=== PATIENT | male | born 1970 | race African-American/Black ===

== ENCOUNTER 2020-07-05 11:46 | Emergency (ER) | payer OTHER, SELFPAY ==
--- NOTE | ~2020-07-05 | CT_ITS ---
EXAMINATION: CT abdomen pelvis w con EXAM DATE: 07/05/2020 14:21 INDICATION: Left lower quadrant pain since Friday. TECHNIQUE: Spiral CT of the abdomen and pelvis was performed following intravenous injection of 100 m L Omnipaque 350. Axial, coronal and sagittal images of the abdomen and pelvis were reviewed. The do se-length product (DLP) for this examination was 705.32 mGy-cm. The exposure was tailored according to patient size (auto mA exposure control), and iterative reconstruction (ASIR) was used as additiona l dose reduction technique. Comparison is made to prior examination from 08/05/2018. FINDINGS: The largest liver cyst is in the segment 3, measures 3.3 cm. The spleen, pancreas, and adr enal glands are unremarkable. Gallbladder is unremarkable. No biliary obstruction. Portal and sple yane veins are patent. Kidneys enhance symmetrically. There is no hydronephrosis. The prostate is unremarkable. The bladder is unremarkable. There is no retroperitoneal or pelvic lymphadenopathy. There is mild scattered arteriosclerotic disease. Small umbilical fat-containing hernia. The appendix is normal. There is a rectosigmoid anastomosis site. The stomach and small bowel are un remarkable. There is expected amount of colonic stool. No free intraperitoneal gas. The heart is normal in size. There are no pericardial or pleural effusions. The lung bases are unremarkable. T here are no osteoblastic or osteolytic lesions identified. Severe left L5-S1 facet arthropathy. IMPRESSION: 1. No acute intra-abdominal findings. 2. Small umbilical hernia. Reviewed, dictated and finalized at location A.
[2020-07-05 12:06] VITALS: BP 131/81; PULSE 67; RESP 17; TEMP 36.7; O2SAT 100
[2020-07-05 12:19] LABS: Basophils Percent Auto 0.3 % (0.2-1.2); Eosinophils Absolute Auto 0.2 K/mm3 (0-0.3); Eosinophils Percent Auto 2.1 % (0-4.4); Hemoglobin 15.2 g/dL (14.0-18.0); Immature Granulocyte Absolute 0.03 K/mm3 (0.00-0.031); Immature Granulocyte Percent A 0.3 % (0-0.5); Lymphocytes Absolute Auto 2.58 K/mm3 (0.9-3.2); Lymphocytes Percent Auto 28.4 % (18.3-44.2); Mean Corpuscular HGB Conc 34.5 g/dl (32-36); Mean Corpuscular Hemoglobin 34.4 pg (26-34); Mean Corpuscular Volume 99.5 fl (80-100); Mean Platelet Volume 9.1 fl (7.4-10.4); Monocytes Absolute Auto 0.6 K/mm3 (0.1-0.6); Monocytes Percent Auto 6.4 % (2.6-8.5); Neutrophils Absolute Auto 5.7 K/mm3 (1.3-6.7); Neutrophils Percent Auto 62.5 % (45.5-73.1); Platelet Count Result 220 k/mm3 (150-375); Red Blood Count 4.42 M/mm3 (4.6-6.20); Red Cell Distribution Width 11.8 % (11.5-14.5); White Blood Count 9.1 K/mm3 (4.5-10.0)
[2020-07-05 12:28] LABS: Alanine Aminotransferase 31 U/L (4-50); Albumin Level 4.6 g/dL (3.5-5.1); Alkaline Phosphatase 91 U/L (38-126); Anion Gap 10 mmol/L (8-16); Aspartate Amino Transferase 34 U/L (17-59); Bilirubin,Total 0.6 mg/dL (0.2-1.3); Blood Urea Nitrogen 17 mg/dL (9-20); Calcium 9.6 mg/dL (8.4-10.2); Carbon Dioxide 24 mmol/L (22-30); Chloride 105 mmol/L (98-107); Estimated CRCL calculation 94 ml/min; Estimated Glomerular Filt Rate > 60; Glucose 97 mg/dL (75-110); Lipase 94 U/L (23-300); Potassium 4.2 mmol/L (3.4-5.0); Sodium 139 mmol/L (137-145)
--- NOTE | 2020-07-05 13:07 | ED.GENADULT ---
HPI - General Adult General Chief complaint: Abdominal Pain Stated complaint: abdominal pain Time Seen by Provider: 07/05/20 13:00 Source: RN notes reviewed History of Present Illness HPI narrative: Patient presents to emergency department from home for left lower quad abdominal pain. Patient states pain began 3 days ago. The pain is described as aching in nature and does not radiate patient denies any fevers or chills chest pain, shortness of breath, nausea, vomiting, diarrhea or any other symptoms. States he saw his PCP who sent her to the emergency department for further evaluation denies requiring any pain medication at this time Related Data Home Medications Medication Instructions Recorded Confirmed amlodipine 07/05/20 Allergies Allergy/AdvReac Type Severity Reaction Status Date / Time hydromorphone Allergy Unknown Itching Verified 07/05/20 15:18 pantoprazole Allergy Unknown Rash Verified 07/05/20 15:18 acetaminophen AdvReac Unknown Itching Verified 07/05/20 15:18 hydrocodone AdvReac Unknown Itching Verified 07/05/20 15:18 Review of Systems Review of Systems: Narrative: Gen.: Denies fevers or chills ENT: Denies congestion Respiratory: Denies shortness of breath or cough CV: Denies chest pain or palpitations GI: See HPI denies burning, urgency, frequency or hematuria Musculoskeletal: Denies back pain or muscle pain Neuro: Denies numbness, tingling, weakness or focal weakness Skin: Denies rash Except as documented, all other systems reviewed and negative [facility] Past Medical History Medical History (Updated 07/05/20 @ 16:09 by Abdoulaye Mancuso DO) Hypertension Social History Social History (Updated 07/05/20 @ 13:08 by Abdoulaye Mancuso DO) Smoking status: Current every day smoker Gender identity (if verbalized by the patient): Male Exam Narrative: Exam Narrative: APPEARANCE: No acute distress, nontoxic, resting in bed HEENT: Normocephalic, atraumatic, OMM RESPIRATORY: No respiratory distress, clear to auscultation bilaterally with no rhonchi wheezing or rales CARDIOVASCULAR: RRR s murmur ABDOMINAL: Soft nondistended tender palpation left lower quadrant no tenderness left upper quadrant, right upper quadrant right lower quadrant no rebound or guarding : Normal external exam, no skin lesions, no scrotal swelling or erythema mild tenderness bilateral testicles MUSCULOSKELETAl: Moves all extremities. No clubbing, cyanosis or edema. NEURO: Awake and alert. Following commands, speech normal, no focal deficits SKIN:: Warm, dry. Normal Color PSYCHIATRIC: Normal affect/mood Course Course Emergency Course: Discussed with patient CT scan of the abdomen pelvis. Patient states he did have a testicular ultrasound performed yesterday at the [facility] that was normal as he had had belly pain yesterday rating down to his testicles Called discussed with patient's PCP Dr. Samantha Rodrigues. States that patient was seen yesterday at the [facility] and had work-up that was negative time seen in the office today and she is in order for CT abdomen pelvis states the patient was treated for prostatitis yesterday with 3 days of antibiotics and she will add on antibiotics for prostatitis treatment Patient states that they are feeling much better at this time. States abdominal pain has improved. Repeat abdominal exam shows the patient's abdomen to be soft with no surgical abdomen present discussed with patient results of workup and diagnosis. Discussed need for follow-up with primary care physician, reasons to return to the emergency department in proper use of medication. Patient understands and agrees to current treatment plan Vital Signs Vital signs: Vital Signs Temperature 98.0 F 07/05/20 12:06 Pulse Rate 67 07/05/20 12:06 Respiratory Rate 17 07/05/20 12:06 Blood Pressure 131/81 07/05/20 12:06 Pulse Oximetry 100 07/05/20 12:06 Temperature 98.0 F 07/05/20 12:06 Pulse Rate 66 07/05/20 15:22 Respiratory Rate
[2020-07-05] MEDS: KETOROLAC 30 MG/ML VIAL (*BKC) IV PUSH (13:55)
[2020-07-05 14:19] LABS: Add Urine Microscopic? YES; Appearance Urine Clear (Clear); Bilirubin Urine Negative (Negative); Blood Urine 1+ (Negative); Color Urine Yellow (Yellow); Glucose Urine UA Negative (Negative); Ketones Urine Negative (Negative); Leukocyte Esterase Ur Negative LEU/UL (Negative); Mucus Urine Moderate /lpf; Nitrate Urine Negative (Negative); Protein Urine 2+ mg/dL (Negative); Specific Grav Ur 1.028 (1.001-1.035); Urobilinogen Urine Negative mg/dL (<2.0); WBC Urine 0-3 /hpf
[2020-07-05 15:22] VITALS: BP 142/101; PULSE 66; RESP 18; O2SAT 99
[2020-07-05 16:17] VITALS: BP 142/101; PULSE 66; RESP 18; TEMP 36.6; O2SAT 99
== END 2020-07-05 16:19 | disposition home or self-care (01) ==
PROVIDERS: Emergency Medicine; Emergency Provider Emergency Medicine
DX: R10.32 Left lower quadrant pain (principal); I10 Essential (primary) hypertension; F17.200 Nicotine dependence, unspecified, uncomplicated
CPT/HCPCS: 36415; 74177; 80053; 81001; 83605; 83690; 85025; 96374; 99284; J1885; Q9967

== ENCOUNTER 2023-09-06 11:36 | Outpatient (CLI) | payer OTHER, SELFPAY ==
--- NOTE | ~2023-09-06 | MR_ITS ---
EXAMINATION: MR knee LT wo con DATE: 09/06/2023 12:22 INDICATION: Meniscus injury s/p twisting left knee w/ a pop 06/2023. TECHNIQUE: Magnetic resonance imaging (MRI) of the left knee was performed without intravenous contra st. Sequences included axial PD-weighted FS FSE, coronal PD-weighted FSE and PD-weighted FS FSE, sagi ttal PD-weighted FSE, and sagittal T2-weighted FS FSE. COMPARISON: None. FINDINGS: Medial compartment: Oblique undersurface tear of the posterior horn. Focal area of partial thickness cartilage signal abn ormality on the weightbearing surface of the MFC. Lateral compartment: Meniscus and cartilage intact. Patellofemoral compartment: Cartilage and retinacula intact. Ligaments and tendons: MCL thickening. The ACL, PCL, and LCL are intact. Remaining flexor and extensor tendons are intact. Fluid: No significant fluid collection. Osseous/other: No suspicious focal or diffuse marrow signal. IMPRESSION: Oblique undersurface tear of the posterior horn, medial meniscus. 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 Reviewed, dictated and finalized at location K.
== END 2023-09-06 11:37 ==
LOC: MICIMG 11:37
PROVIDERS: PCP Internal Medicine; Visit Provider Internal Medicine
DX: S83.242A Other tear of medial meniscus, current injury, left knee, initial encounter (principal); S83.412A Sprain of medial collateral ligament of left knee, initial encounter; X58.XXXA Exposure to other specified factors, initial encounter
CPT/HCPCS: 73721